=== PATIENT | female | born 1975 | race Caucasian/White ===

== ENCOUNTER 2016-12-29 07:31 | Day surgery (SDC) | payer MEDICARE, MEDICAID ==
[~2016-12-29 07:31] MED LIST: Bupivacaine 0.5% 50 ML MDV ONE; Dexamethasone 4 MG/ML SDV ONE; Glycopyrrolate 0.2 MG/ML 5 ML MDV ONE; Lidocaine 1% with EPINEPHrine 1:100,000 50 ML MDV ONE; Neostigmine Methylsulfate 1 MG/ML 5 ML Syringe ONE; Ondansetron 4 MG/2 ML SDV ONE; Propofol 200 MG/20 ML SDV ONE; Rocuronium 50 MG/5 ML Vial ONE; Succinylcholine 200 MG/10 ML MDV ONE
[2016-12-29] MEDS: Sodium Chloride 0.9% 1,000 ML IV SCH ×2 (08:28→11:49)
[2016-12-29] MEDS ORDERED: ceFAZolin 2 GM in Sodium Chloride 0.9% 100 ML IV ONE (09:15)
[2016-12-29] MEDS ORDERED: ceFAZolin 2 GM in Sodium Chloride 0.9% 50 ML IV ONE (09:15)
[2016-12-29] MEDS ORDERED: metroNIDAZOLE/Normal Saline 500 MG in Premix Bag 1 BAG IV ONE (09:15)
[2016-12-29] MEDS ORDERED: Lactated Ringers 1,000 ML ONE (10:26)
[2016-12-29] MEDS ORDERED: hydrOXYzine HCl 100 MG/2 ML SDV IM PRN (10:51)
[2016-12-29] MEDS ORDERED: Docusate Sodium 100 MG Cap PO PRN (10:52)
[2016-12-29] MEDS ORDERED: diphenhydrAMINE 50 MG/ML SDV IVPUSH PRN (10:52)
[2016-12-29] MEDS ORDERED: Promethazine 25 MG/ML SDV IM PRN (10:52)
[2016-12-29] MEDS ORDERED: Benzocaine/Cetylpyridinium/Menthol Lozenge MUCMEM PRN (10:52)
[2016-12-29] MEDS ORDERED: fentaNYL 100 MCG/2 ML SDV IVPUSH PRN (10:52)
[2016-12-29] MEDS ORDERED: Zolpidem 5 MG Tab PO PRN (10:52)
[2016-12-29] MEDS ORDERED: Acetaminophen/oxyCODONE 325-10 MG Tab PO PRN (10:55)
[2016-12-29] MEDS ORDERED: Ketorolac 30 MG/ML SDV IM ONE (11:15)
[2016-12-29 14:27] VITALS: BP 143/93
--- NOTE | 2017-01-01 09:05 | OR ---
DATE OF PROCEDURE: 12/29/2016 PREOPERATIVE DIAGNOSIS: Cholelithiasis and cholecystitis. PREOPERATIVE DIAGNOSIS: Cholelithiasis and cholecystitis. PROCEDURE: Laparoscopic cholecystectomy. FINDINGS: 1. Significant extensive inflammation around the gallbladder. 2. Cholecystitis. 3. Cholelithiasis. COMPLICATIONS: None. 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 ANESTHESIA: General/local. RISKS: Risks, benefits, alternatives and limitations including but not limited to infection, bleeding, injury to common bile duct, cystic duct leaks, hematoma formation, abscess formation and other risks were explained to the patient, and she wished to proceed. PROCEDURE IN DETAIL: The patient was placed in a supine position. The abdomen was prepped and draped. A curvilinear supraumbilical incision was made. A Veress needle was used to enter the abdomen without abnormality and a drop test was performed without abnormality. The abdomen was subsequently insufflated. An additional 10 mm and two 5 mm ports will be entered under direct visualization. The gallbladder was retracted cephalad. The infundibulum was retracted inferolaterally. Using blunt dissection, a "clear view" of the gallbladder entering was noted with a single pulsatile structure in the gallbladder and a single nonpulsatile structure entering the gallbladder. The patient also had a very small vein, which was noted, and would be subsequently clipped and transected. During this process, a blue load stapler was used. The clips did reach across to the cystic duct, however the chance of slipping was high, therefore they were removed and exchanged with a blue load stapler, which was fired without difficulty. The remaining gallbladder was removed off the gallbladder bed. This was checked for bleeding which was controlled with electrocautery. The gallbladder was removed with bag with moderate difficulty. The liver bed was reinspected for bleeding, which was controlled with electrocautery. The air was removed. The wounds were closed with 3-0 Vicryl and 4-0 Vicryl interrupted running fashion. Dermabond was applied. The patient tolerated the procedure well. Keyur Snell MD /[id number]
== END 2016-12-29 15:45 | disposition home or self-care (01) ==
LOC: JP.SDS 07:31 → JP.MS 10:52 → JP.SDS 15:45
PROVIDERS: ATTEND Surgery
DX: K80.10 Calculus of gallbladder with chronic cholecystitis without obstruction (principal); I10 Essential (primary) hypertension; K65.8 Other peritonitis; F41.9 Anxiety disorder, unspecified; K21.9 Gastro-esophageal reflux disease without esophagitis; F25.1 Schizoaffective disorder, depressive type; F17.210 Nicotine dependence, cigarettes, uncomplicated; Z88.8 Allergy status to other drugs, medicaments and biological substances
CPT/HCPCS: 36415; 47562; 80053; 85027; A9270; J0690; J1100; J1885; J2405; J2704; J2710; J3010; J3410; J7040; J7050; J7120; 88304; J0330

== ENCOUNTER 2017-01-19 10:00 | Day surgery (SDC) | payer MEDICARE, MEDICAID ==
--- NOTE | 2017-01-19 09:51 | MR ---
Abdomen wo Cont HISTORY: CHOLECYSTITIS, S/P LAP CHOLECYSTECTOMY 2 WEEKS AGO Multiplanar MRCP sequences of the abdomen were obtained. Comparison preoperative CT study is dated 12/19/2016. FINDINGS: Gallbladder is surgically absent. There is fluid in the gallbladder bed. Large amount of fl uid is seen around the liver. Findings may represent biloma. MRI is insensitive for identifying bile leak. Intrahepatic and extrahepatic biliary ducts are nondistended. I see no signs of retained biliary duct stone, mass, or stricture. Pancreatic duct is not dilated. No focal brain abnormality is seen in the liver, spleen, pancreas, adrenal glands, or kidneys. IMPRESSION: 1. No biliary duct dilatation or signs of retained biliary duct stone. Pancreatic duct is not dilated . 2. There is fluid in the gallbladder bed and a fairly large amount of fluid surrounding the liver. Co nsidering recent gallbladder surgery, appearance is suspicious for biloma. Radionuclide hepatobiliary scan might be helpful to evaluate for bile leak if indicated clinically. Findings discussed with the primary physician at 0930 hours.
[2017-01-19] MEDS ORDERED: Bupivacaine 0.5%/EPINEPHrine 1:200,000 50 ML MDV ONE (10:33)
[2017-01-19] MEDS ORDERED: Methylene Blue 50 MG/10 ML Ampule ONE (10:40)
[2017-01-19] MEDS ORDERED: Midazolam 1 MG/ML 2 ML SDV ONE (10:40)
[2017-01-19] MEDS ORDERED: fentaNYL 250 MCG/5 ML SDV ONE (10:40)
[2017-01-19] MEDS ORDERED: Dexamethasone 4 MG/ML SDV ONE (10:41)
[2017-01-19] MEDS ORDERED: Ondansetron 4 MG/2 ML SDV ONE (10:41)
[2017-01-19] MEDS ORDERED: Glycopyrrolate 0.2 MG/ML 5 ML MDV ONE (10:41)
[2017-01-19] MEDS ORDERED: Neostigmine Methylsulfate 1 MG/ML 5 ML Syringe ONE (10:41)
[2017-01-19] MEDS ORDERED: Rocuronium 50 MG/5 ML Vial ONE (10:41)
[2017-01-19] MEDS ORDERED: Propofol 200 MG/20 ML SDV ONE (10:41)
[2017-01-19] MEDS ORDERED: Sodium Chloride 0.9% 1,000 ML IV SCH (10:46)
[2017-01-19] MEDS ORDERED: ceFAZolin 2 GM in Premix Bag 1 BAG IV ONE (11:00)
[2017-01-19] MEDS ORDERED: Ketorolac 60 MG/2 ML SDV ONE (11:56)
[2017-01-19] MEDS ORDERED: Morphine 2 MG/ML Syringe IVPUSH PRN (13:13)
[2017-01-19] MEDS ORDERED: Acetaminophen/HYDROcodone 325-5 MG Tab PO PRN (13:13)
[2017-01-19 14:30] VITALS: BP 125/85
--- NOTE | 2017-01-22 09:03 | OR ---
DATE OF PROCEDURE: 01/19/2017 PROCEDURE: 1. Diagnostic laparoscopy. 2. Drainage of fluid collection, abscess formation versus biloma. RISKS: Risks, benefits, alternatives, limitations including, but are not limited to infection, bleeding, and injury to abdominal structures, such as bowel and bladder, were explained to the patient, and she wished to proceed. PROCEDURE IN DETAIL: The patient was placed in supine position. The previous supraumbilical curvilinear incision was opened and introduced without abnormality. An additional 5 mm port would be entered also under direct visualization. The patient was noted to have a fluid collection around the gallbladder and the liver of tanned fluid. This was most consistent with oxidized biloma fluid, however, this would be cultured and removed. A total of 1 L of irrigation was used to irrigate all the quadrants of the abdomen. Two 10 flat Dilip-Reynolds were placed, one in the gallbladder fossa, one in the right upper quadrant without difficulty. The patient tolerated the procedure well. Of note, the wounds were closed with 3-0 Vicryl and 4-0 Vicryl in an interrupted running fashion. Keyur Snell MD /[id number]
== END 2017-01-19 14:30 | disposition home or self-care (01) ==
LOC: JP.SDS 10:00
PROVIDERS: ATTEND Surgery
DX: K81.0 Acute cholecystitis (principal); F25.1 Schizoaffective disorder, depressive type; I10 Essential (primary) hypertension; F41.9 Anxiety disorder, unspecified; Z88.8 Allergy status to other drugs, medicaments and biological substances; Z79.899 Other long term (current) drug therapy; F17.210 Nicotine dependence, cigarettes, uncomplicated
CPT/HCPCS: 49322; 74181; 87070; 87075; 87205; A9270; J0690; J1100; J1885; J2250; J2405; J2704; J2710; J3010; J7040